=== PATIENT | male | born 1985 | race Caucasian/White ===

== ENCOUNTER → 2016-10-16 | Day surgery (SDC) | payer OTHER ==
--- NOTE | 2016-10-21 15:18 | PATH ---
Cytology Non-Gynecological Report Patient Name: LULA BRANNON [facility]. Rec. #: [id number] /Age/Gender: 1985 (Age: 31) / M Account: [id number] Location: RADIOLOGY Taken: 10/16/2016 Received: 10/16/2016 Reported: 10/21/2016 Physicians: Tiny Robison M.D. Specimen(s) Received THYROID FNA ISTHMUS Clinical History Isthmus nodule, 1.89 x 1.8 x 1.78 cm Final Diagnosis THYROID GLAND, ISTHMUS, FINE NEEDLE ASPIRATION: SATISFACTORY FOR EVALUATION. 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 Comment: The smears show scattered clusters of enlarged cells with nuclear grooves and rare nuclear pseudoinclusions. The cell block preparation shows small papillary type structures lined by similar-appearing cells. The background shows follicular epithelial cells, macrophages and colloid. These findings are suspicious for papillary thyroid carcinoma ([place] Category V). Electronically Signed Tarun Beyer M.D. Gross Description Received are eight direct smears, four of which are air-dried and Diff-Quik stained, and four of which are alcohol fixed and Pap stained. Also received is 20 ml of bloody stained formalin from which one cellblock is prepared.
== END | disposition home or self-care (01) ==
LOC: JRADIR 09:33
PROVIDERS: ATTEND Internal Medicine
PROC: 0GBH3ZX Excision of Right Thyroid Gland Lobe, Percutaneous Approach, Diagnostic (ICD-10-PCS; principal; 2016-10-16)
PROC: BG44ZZZ Ultrasonography of Thyroid Gland (ICD-10-PCS; 2016-10-16)
DX: E04.1 Nontoxic single thyroid nodule (principal)
CPT/HCPCS: 76942; 88173; 88305-TC